=== PATIENT | female | born 1930 | race Caucasian/White ===

== ENCOUNTER → 2017-04-20 | Emergency (ER) | payer MEDICARE, OTHER ==
[~2017-04-20] MED LIST: CONTRAST GIVEN MC PRN; FUROSEMIDE 40 MG/4 ML VIAL IVP ONE; IOHEXOL 240 MG/ML 50ML VIAL. ONE; IOHEXOL 300 MG/ML 75 ML VIAL. IV ONE; IV NORMAL SALINE 1,000ML 1,000 ML IV SCH
--- NOTE | 2017-04-20 03:02 | ED.ADGEN ---
Past History Past Medical History: Arthritis, COPD, CVA, GERD, Hypertension, UTI Adult General Chief Complaint Chief Complaint " They say I am blocked...I am nauseated..."..." But I had guzman and eggs for breakfast yesterday..." " But I ve not pooped for a few days. " HPI HPI Patient is a 86 year old female pt. from [facility]. , who presents with hx of no stool passage since 04/15. Pt,. X-ray 04/19/2017 shows Moderate central bowel loop dilation, consistent with stomach dilation- possible gastric outlet obstruction vs gastroparesis, volvulus. Pt. has extensive medical hx. with CVA - Rt deficit, Aphasia, Dysphagia, COPD, GERD, Hx. Falling, Arthritis, UTI's and generalized deconditioning. Pt. does report constipation. Pt. abdomen is distended, but not particularly tender. Upper abdomen is somewhat tympanic, while lower abdomen is distended and dull. Patient denies any trauma. Patient denies any specific ill contacts. Patient denies any vomiting this morning. Patient seen in for possible gastric outlet obstruction. Patient normally follows with Dr. Parada. Review of Systems Review of Systems Constitutional: Denies fever or chills [] Eyes: Chronic visual deficits. Denies, redness, or eye pain [] HENT: Denies nasal congestion or sore throat [] Respiratory: Denies cough or shortness of breath [] Cardiovascular: No additional information not addressed in HPI [] GI: Complaints of abdominal pain, nausea, and constipation. : Denies dysuria or hematuria [] Musculoskeletal: Chronic back pain or joint pain [] Integument: Denies rash or skin lesions [] Neurologic: Denies headache, focal weakness or sensory changes [] Endocrine: Denies polyuria or polydipsia [] Family History Family History Non-contributory Current Medications Current Medications Current Medications Medications (Trade) Dose Ordered Sig/Fiorella Start Time Stop Time Status Last Admin Dose Admin Furosemide (Lasix) 40 mg 1X ONCE 04/20/17 06:00 04/20/17 06:01 DC 04/20/17 06:16 40 MG Info (Do NOT chart on this entry -- for MONITORING) 1 each PRN DAILY PRN 04/20/17 03:45 04/22/17 03:44 Iohexol (Omnipaque 240 Mg/ml) 50 ml STK-MED ONCE 04/20/17 04:02 04/20/17 04:03 DC Iohexol (Omnipaque 300 Mg/ml) 75 ml 1X ONCE 04/20/17 04:00 04/20/17 04:01 DC 04/20/17 04:14 75 ML Sodium Chloride 1,000 ml @ 1,000 mls/hr Q1H 04/20/17 03:30 04/20/17 04:29 DC 04/20/17 03:31 1,000 MLS/HR See Nursing for Fdc Medications Allergies Allergies Allergies Coded Allergies Type Severity Reaction Last Updated Verified acetaminophen Allergy Mild 04/20/17 Yes cat dander Allergy Mild 04/20/17 Yes codeine Allergy Mild 04/20/17 Yes erythromycin base Allergy Mild 04/20/17 Yes propoxyphene Allergy Mild 04/20/17 Yes Penicillins Allergy Unknown 04/20/17 Yes fish oil Allergy Unknown 04/20/17 Yes ibuprofen Allergy Unknown 04/20/17 Yes tetracycline Allergy Unknown 04/20/17 Yes NKDA Physical Exam Physical Exam Constitutional: In moderate distress, non-toxic appearance. [] HENT: Normocephalic, atraumatic, bilateral external ears normal, oropharynx moist, no oral exudates, nose normal. [] Eyes: PERRLA, EOMI, conjunctiva normal, no discharge. Hx. macular degeneration and decreased vision Neck: Normal range of motion, no tenderness, supple, no stridor. [] Cardiovascular: Tachycardia Heart rate regular rhythm, no murmur, PMI to Lt. Lungs & Thorax: Bilateral breath equal at apex bilateral on auscultation [] Abdomen: Bowel sounds hyperactive, soft, some generalize tenderness, distended, no masses, no pulsatile masses. Obese. Skin: Warm, dry, no erythema, no rash. Poor turgor. Back: No tenderness, no CVA tenderness. [] Extremities: No tenderness, no cyanosis, no clubbing, ROM intact, ankle edema. [] Neurologic: Alert and oriented X 3, chronic Rt side motor deficit- old CVA, no new focal deficits per pt. Current Patient Data Vital Signs Vital Signs Date Time Temp Pulse Resp B/P (MAP) Pulse Ox O2 Delivery O2 Flow Rate FiO2 04/20/17 02:35 98.6 89 20 98 Room Air Lab Results Laboratory Tests Test 04/20/17 02:46 04/20/17 03:25 04/20/17 04:20 White Blood Count 8.8 x10^3/uL (4.0-11.0) Red Blood Count 4.22 x10^6/uL (3.50-5.40) Hemoglobin 12.8 g/dL (12.0-15.5) Hematocrit 38.9 % (36.0-47.0) Mean Corpuscular Volume 92 fL (79-100) Mean Corpuscular Hemoglobin 30 pg (25-35) Mean Corpuscular Hemoglobin Concent 33 g/dL (31-37) Red Cell Distribution Width 15.2 % (11.5-14.5) H Platelet Count 234 x10^3/uL (140-400) Neutrophils (%) (Auto) 74 % (31-73) H Lymphocytes (%) (Auto) 16 % (24-48) L Monocytes (%) (Auto) 8 % (0-9) Eosinophils (%) (Auto) 1 % (0-3) Basophils (%) (Auto) 0 % (0-3) Neutrophils # (Auto) 6.6 x10^3uL (1.8-7.7) Lymphocytes # (Auto) 1.4 x10^3/uL (1.0-4.8) Monocytes # (Auto) 0.7 x10^3/uL (0.0-1.1) Eosinophils # (Auto) 0.1 x10^3/uL (0.0-0.7) Basophils # (Auto) 0.0 x10^3/uL (0.0-0.2) Prothrombin Time 10.8 SEC (9.4-11.4) Prothrombin Time INR 1.1 (0.9-1.1) PTT 24 SEC (23-33) Sodium Level 135 mmol/L (136-145) L Potassium Level 4.2 mmol/L (3.5-5.1) Chloride Level 100 mmol/L (98-107) Carbon Dioxide Level 31 mmol/L (21-32) Anion Gap 4 (6-14) L Blood Urea Nitrogen 15 mg/dL (7-20) Creatinine 1.0 mg/dL (0.6-1.0) Estimated GFR (Cockcroft-Gault) 52.4 BUN/Creatinine Ratio 15 (6-20) Glucose Level 106 mg/dL (70-99) H Calcium Level 9.3 mg/dL (8.5-10.1) Magnesium Level 1.3 mg/dL (1.8-2.4) L Total Bilirubin 0.4 mg/dL (0.2-1.0) Direct Bilirubin 0.1 mg/dL (0.0-0.2) Aspartate Amino Transferase (AST) 20 U/L (15-37) Alanine Aminotransferase (ALT) 19 U/L (14-59) Alkaline Phosphatase 63 U/L (46-116) Troponin I Quantitative < 0.017 ng/mL (0-0.055) YZ-Nim-Y-Type Natriuretic Peptide 6568 pg/mL (0-449) H Total Protein 6.8 g/dL (6.4-8.2) Albumin 3.1 g/dL (3.4-5.0) L Albumin/Globulin Ratio 0.8 (1.0-1.7) L Amylase Level 24 U/L (25-115) L Lipase 111 U/L (73-393) Lactic Acid Level 1.2 mmol/L (0.4-2.0) Urine Collection Type U cath Urine Color Yellow Urine Clarity Clear Urine pH 6.0 Urine Specific [place] <=1.005 Urine Protein Neg (NEG-TRACE) Urine Glucose (UA) Neg mg/dL (NEG) Urine Ketones (Stick) Neg mg/dL (NEG) Urine Blood Neg (NEG) Urine Nitrite Neg (NEG) Urine Bilirubin Neg (NEG) Urine Urobilinogen Dipstick 0.2 mg/dL (0.2 mg/dL) Urine Leukocyte Esterase Trace (NEG) Urine RBC 0 /HPF (0-2) Urine WBC 1-4 /HPF (0-4) Urine Squamous Epithelial Cells None /LPF Urine Bacteria Few /HPF (0-FEW) Urine Opiates Screen Neg (NEG) Urine Methadone Screen Neg (NEG) Urine Barbiturates Neg (NEG) Urine Phencyclidine Screen Neg (NEG) Urine Amphetamine/Methamphetamine Neg (NEG) Urine Benzodiazepines Screen Pos (NEG) Urine Cocaine Screen Neg (NEG) Urine Cannabinoids Screen Neg (NEG) Urine Ethyl Alcohol Neg (NEG) EKG EKG My interpretation of EKG shows a Afib at 90, occasional PVC, Nonspecific Anteroseptal and inferior changes. No STEMI Radiology/Procedures Radiology/Procedures My interpretation acute abdomen shows cardiomegaly and increased cephalization consistent with CHF. It is no free air in the diaphragm. There is somewhat this distended gastric bubble. CT of abdomen shows thickened gastric wall. There are findings consistent with possible gastric outlet obstruction. Patient does have findings of constipation. Distended bladder. Due to degenerative joint changes as well as compression fractures which appear to be old. Hernia containing fat. See formal report for details[] Course & Med Decision Making Course & Med Decision Making Pertinent Labs and Imaging studies reviewed. (See chart for details) Discussed presentation, testing and treatment plan with - Will transfer to [facility] for his care, and further evaluation patient and treatment. [] Final Impression Final Impression 1. Abdomen Pain[] 2. Constipation 3. Possible gastric outlet obstruction-thickened gastric wall noted on CT with distention of stomach 4. CHF 5. Malnutrition albumin 3.1 Problems: Dragon Disclaimer Dragon Disclaimer This electronic medical record was generated, in whole or in part, using a voice recognition dictation system. TYESHA ADAIR MD Apr 20, 2017 03:02
[2017-04-20 03:27] LABS: BASO % 0 % (0-3); EOS # 0.1 x10^3/uL (0.0-0.7); EOS % 1 % (0-3); HEMATOCRIT 38.9 % (36.0-47.0); HEMOGLOBIN 12.8 g/dL (12.0-15.5); LYMPH # 1.4 x10^3/uL (1.0-4.8); LYMPH % 16 % (24-48); MEAN CORPUSCULAR HEMOGLOBIN 30 pg (25-35); MEAN CORPUSCULAR HGB CONC 33 g/dL (31-37); MEAN CORPUSCULAR VOLUME 92 fL (79-100); MONO # 0.7 x10^3/uL (0.0-1.1); MONO % 8 % (0-9); NEUT # 6.6 x10^3uL (1.8-7.7); NEUT % 74 % (31-73); PLATELET COUNT 234 x10^3/uL (140-400); RED BLOOD COUNT 4.22 x10^6/uL (3.50-5.40); RED CELL DISTRIBUTION WIDTH 15.2 % (11.5-14.5); WHITE BLOOD COUNT 8.8 x10^3/uL (4.0-11.0)
[2017-04-20 03:39] LABS: ALBUMIN 3.1 g/dL (3.4-5.0); ALBUMIN/GLOBULIN RATIO 0.8 (1.0-1.7); CALCIUM 9.3 mg/dL (8.5-10.1); DIRECT BILIRUBIN 0.1 mg/dL (0.0-0.2); GFR 52.4; MAGNESIUM 1.3 mg/dL (1.8-2.4); POTASSIUM 4.2 mmol/L (3.5-5.1); TOTAL BILIRUBIN 0.4 mg/dL (0.2-1.0); TOTAL PROTEIN 6.8 g/dL (6.4-8.2)
[2017-04-20 04:43] LABS: BARBITURATES NEG (NEG); BENZODIAZEPINES POS (NEG); CANNABINOIDS NEG (NEG); COCAINE NEG (NEG); METHADONE NEG (NEG); OPIATES NEG (NEG); PHENCYCLIDINE NEG (NEG)
[2017-04-20 04:44] LABS: AMPHETAMINE/METHAMPHETAMINE NEG (NEG)
[2017-04-20 04:49] LABS: BACTERIA,URINE FEW /HPF (0-FEW); BILIRUBIN,URINE NEG (NEG); CLARITY,URINE CLEAR; COLOR,URINE YELLOW; GLUCOSE,URINE NEG (NEG); NITRITE,URINE NEG (NEG); RBC,URINE 0 /HPF (0-2); UROBILINOGEN,URINE 0.2 mg/dL (0.2 mg/dL)
--- NOTE | 2017-04-20 04:50 | RAD ---
INDICATION: abdomen pain, possible gastric outlet obstruction.
Omni 300 75cc Omni 240 30cc COMPARISON: None. TECHNIQUE: Axial CT images were obtained through the abdomen and pelvis with intravenous contrast. One or more of the following individualized dose reduction techniques were utilized for this examination: 1. Automated exposure control; 2. Adjustment of the mA and/or kV according to patient size; 3. Use of iterative reconstruction technique. FINDINGS: Small right pleural effusion. Mitral annulus calcifications. Enlargement of the atria. Severe calcific atherosclerosis. Moderate fat-containing left inguinal hernia. Gallbladder is largely contracted. Questionable mild indistinctness of adjacent fat. No intrahepatic bile duct dilation. No peripancreatic edema. Spleen unremarkable. No hydronephrosis. Bladder partially distended. Colonic diverticulosis. Suspected appendix does not appear grossly inflamed. Moderate amount of stool is seen within the rectal region. Degenerative changes spine with multilevel central canal and neural foraminal stenosis. There is some distention of the stomach with air and debris. There is some prominence of the wall of the stomach antrum. Scoliotic curvature of the spine. Moderate compression fractures at T12 and L1 with mild retropulsion. Mild compression fracture L4. IMPRESSION: 1. There is fluid and air distention of the stomach with some apparent prominence of the wall of the gastric antrum. This prominence of the wall could be secondary to a region of contraction but pathologic causes of wall thickening such as gastritis, a lesion within the area or ulcer is not excluded on this exam. Additionally given the distention of the stomach delayed gastric emptying or partial gastric outlet obstruction not excluded on this exam. 2. Moderate amount stool within the rectal region. Would correlate for symptoms of constipation. 3. Multiple compression fractures within the thoracic and lumbar spine as described above. Could be old but if the patient is having pain in the region acute etiology is not excluded on this exam. 4. Calcific atherosclerosis. 5. Small right-sided pleural effusion. 6. Contracted gallbladder with questionable mild indistinctness of adjacent fat. This indistinctness could be artifactual in nature but cannot exclude mild pericholecystic edema. Would correlate with symptoms within the region and if further clarification is desired ultrasound could be obtained Electronically signed by: Errol Curry MD (04/20/2017 4:47 AM) [id number]
[2017-04-20 06:39] VITALS: BP 102/53
--- NOTE | 2017-04-20 06:40 | EKG ---
[address] [address] Test Date: 2017-04-20 Test Time: 03:20:02 Pat Name: MARLA RODRIGUEZ Department: Room: Gender: F [employer]ic: BRAYDEN : 1930 Requested By: TYESHA ADAIR Order Number: [id number] Reading MD: Amandeep Oswald Measurements Intervals [place] Rate: 90 P: [place]: QRS: 4 QRSD: 74 T: -64 QT: 354 QTc: 437 Interpretive Statements ATRIAL FIBRILLATION Electronically Signed On 04-21-2017 10:23:24 CDT by Amandeep Oswald
--- NOTE | 2017-04-20 08:06 | RAD ---
Examination: Acute abdomen series History: History of abdominal pain. Comparison: None available Findings: Low lung volumes and technique accentuates heart size and pulmonary vascularity. Mild cardiomegaly. There is mild prominent appearing bilateral interstitial lung markings could be interstitial infiltrates or mild congestive changes. No evidence of free air noted under the hemidiaphragm. Moderate air distended stomach identified in the mid abdomen. Feces and gas noted in the colon. Moderate amount of feces identified in the rectum. Moderate to severe degenerative changes to the lumbar spine. Impression: 1. Mild prominent appearing bilateral interstitial lung markings could be interstitial infiltrates or congestive changes. 2. Moderate air distended stomach identified in the midabdomen. 3. Moderate amount of stool identified in the colon particularly in the rectum, correlate for constipation or fecal impaction.
== END | disposition short-term general hospital (02) ==
LOC: ER 02:34
DX: K59.00 Constipation, unspecified (principal); R10.84 Generalized abdominal pain; I11.0 Hypertensive heart disease with heart failure; I50.9 Heart failure, unspecified; E46 Unspecified protein-calorie malnutrition; J44.9 Chronic obstructive pulmonary disease, unspecified; K21.9 Gastro-esophageal reflux disease without esophagitis; J90 Pleural effusion, not elsewhere classified; M19.90 Unspecified osteoarthritis, unspecified site; Z86.73 Personal history of transient ischemic attack (TIA), and cerebral infarction without residual deficits; Z88.0 Allergy status to penicillin; Z88.6 Allergy status to analgesic agent; Z88.1 Allergy status to other antibiotic agents; Z88.5 Allergy status to narcotic agent; Z91.018 Allergy to other foods; Z91.048 Other nonmedicinal substance allergy status
CPT/HCPCS: 36415; 51702; 74022; 74177; 80053; 80076; 80307; 81001; 82150; 83605; 83690; 83735; 83880; 84443; 84484; 85025; 85610; 85730; 87086; 93005; 96361; 96374; 99285; J1940; Q9967; G0479; J7030